=== PATIENT | female | born 1980 | race Caucasian/White ===

== ENCOUNTER 2016-05-07 18:53 | Emergency (ER) | payer OTHER ==
[2016-05-07 21:47] LABS: BASO % 0.1 % (0.1-1.2); EOS # 0.1 10_X3_uL (0.0-0.4); GRAN # 4.2 10_X3_uL (1.6-6.1); GRAN % 61.7 % (34.0-71.1); HEMATOCRIT 39.7 % (34-45); LYMPH # 2.1 10_X3_uL (1.2-3.7); LYMPH % 30.6 % (19.3-51.7); MEAN CORPUSCULAR HGB CONC 32.7 g/dL (32.0-36.0); MEAN CORPUSCULAR VOLUME 94.5 fL (79-95); MEAN PLATELET VOLUME 11.4 fl (7.5-11.5); MONO # 0.5 10_X3_uL (0.2-0.9); MONO % 6.6 % (4.7-12.5); PLATELET COUNT 155 x10_3/uL (182-369); RED CELL DISTRIBUTION WIDTH 13.2 % (11.7-14.4); WHITE BLOOD COUNT 6.8 x10_3/uL (4.0-10.0)
[2016-05-07 21:50] LABS: URINE BILIRUBIN NEGATIVE (NEGATIVE); URINE BLOOD 3+ (NEGATIVE); URINE GLUCOSE (UA) NORMAL (NORMAL); URINE KETONE 1+ (NEGATIVE); URINE LEUKOCYTE ESTERASE TRACE (NEGATIVE); URINE NITRATE NEGATIVE (NEGATIVE); URINE PROTEIN 1+ (NEGATIVE)
[2016-05-07 21:59] LABS: URINE BACTERIA FEW (NONE SEEN); URINE MUCUS TRACE; URINE RBC >20 /[HPF] (0-2); URINE SQUAMOUS EPITHELIAL CELL 0-10 /[HPF] (NONE SEEN); URINE WBC 0-5 /[HPF] (0-5)
[2016-05-07 22:03] LABS: ALBUMIN 4.1 gm/dL (3.4-5.0); ALKALINE PHOSPHATASE 69 U/L (50-136); ALT/SGPT 15 U/L (3.5-33.9); AMYLASE 35 U/L (15.62-74.58); AST/SGOT 11 U/L (7.04-26.96); BILIRUBIN,TOTAL 0.28 mg/dL (0.0-1.0); BLOOD UREA NITROGEN 12 mg/dL (7-18); CALCIUM 8.6 mg/dL (8.7-10.7); CARBON DIOXIDE 22 mmol/L (21-32); CREATINE KINASE 64 U/L (21-215); CREATININE < 0.5 mg/dL (0.6-1.3); GLUCOSE,RANDOM 88 mg/dL (70-99); LIPASE 32 U/L (6.75-60.75); SODIUM 141 mmol/L (136-145); TOTAL PROTEIN 6.1 gm/dL (6.4-8.2)
== END 2016-05-07 23:15 | disposition home or self-care (01) ==
LOC: ER 18:53
PROVIDERS: Emergency Medicine
DX: R10.11 Right upper quadrant pain (principal); K52.9 Noninfective gastroenteritis and colitis, unspecified; Z98.84 Bariatric surgery status; Z79.899 Other long term (current) drug therapy
CPT/HCPCS: 36415; 74150; 80053; 81001; 81025; 82150; 82550; 82553; 83690; 85025; 93005; 99070; 99284-25